=== PATIENT | female | born 1970 | race Caucasian/White ===

== ENCOUNTER 2020-08-19 19:02 | Emergency (ER) | payer MEDICAID, SELFPAY ==
[2020-08-19 19:06] VITALS: BP 132/79; PULSE 78; RESP 18; TEMP 36.6; O2SAT 97; BMI 26.2
[2020-08-19 19:10] VITALS: BP 132/79; PULSE 81; RESP 18; TEMP 36.6; O2SAT 97
--- NOTE | 2020-08-19 19:23 | EKG12_ITS ---
Test Reason : CP Blood Pressure : / mmHG Vent. Rate : 077 BPM Atrial Rate : 077 BPM P-R Int : 128 ms QRS Dur : 078 ms QT Int : 378 ms P-R-T Axes : 048 074 060 degrees QTc Int : 427 ms Normal sinus rhythm Normal ECG Confirmed by YOVANY EMERSON, ALFONSO ([id number]), film editor supervisor SAILAJA MCCLELLAN ([id number]) on 08/22/2020 2:59:24 PM Referred By: Confirmed By:LINDA PEDROZA MD
--- NOTE | 2020-08-19 19:45 | ED.VIS.GEN ---
History of Present Illness Chief Complaint: Chest Pain Informant: Patient Narrative: Patient is a 50-year-old previously healthy female who presents to the emergency department for intermittent chest pains. She feels like she has an electrical shock substernally that sometimes goes into the left side of her chest. It only last for a few seconds and then goes away. She does not know aggravating or relieving factors. She tried exerting herself which did not make her symptoms worse. The first time she felt this was 8 months ago. It can occur multiple times per day or not occur any times per day. She states it is completely random. During the episode she does feel short of breath. Besides her father passing away with a history of CHF no other significant cardiac or pulmonary family history. She denies any history of DVT/PE. No pain or swelling in her legs. She does have a former smoking history. She denies any cough, cold, congestion symptoms no fevers or chills. No abdominal pain. No radiation of the pain to her back. Past Medical History - Allergies and Home Meds Allergies/Adverse Reactions: Allergies Sulfa (Sulfonamide Antibiotics) Adverse Reaction (Verified 08/19/20 19:13) Other Primary Care Physician: Guy Akers DO [Primary Care Provider] - 1 Day Prior records reviewed: Yes Past Medical History: None Surgical History: - - Tubal ligation, tonsillectomy Smoking Status: Former smoker Review of Systems All systems negative except as indicated General: Denies: Chills, Fever, Sweats Eyes: Denies: Visual changes - bilaterally, Diplopia ENT: Denies: Rhinorrhea, Sore throat Cardiovascular: Reports: Chest pain, Palpitations Respiratory: Reports: Dyspnea. Denies: Cough, Dyspnea on exertion Gastrointestinal: Denies: Abdominal pain, Nausea, Vomiting, Diarrhea Genitourinary: Denies: Dysuria, Hematuria, Frequency Musculoskeletal: Denies: Back pain, Swelling, Extremity Pain Skin: Denies: Rash, Wounds Neurological: Denies: Headache, Weakness, Numbness Physical Exam Vital Signs/Narrative: Vital Signs Temp Pulse Resp BP Pulse Ox 08/19/20 19:10 97.8 F 81 18 132/79 H 97 08/19/20 19:06 97.8 F 78 18 132/79 H 97 Inital Vital Signs reviewed: Yes General: Well nourished, Well developed, No Acute Distress Head: Normocephalic, Atraumatic Eyes: Perrl, EOMI ENT: Moist mucous membranes, No rhinorrhea Neck: Supple, Nontender Cardiovascular: Regular rate, Regular rhythm, No murmurs Respiratory: No distress, CTA bilaterally, Chest nontender Abdomen: Soft, Nontender, Nondistended, Normal bowel sounds Back: Nontender, Normal Inspection Extremities: Nontender, No edema. Negative for: Calf Tenderness Skin: Normal color, No rash Neurological: Alert, Normal Strength, Normal Sensation Psychological: Normal affect, Normal Mood Diagnostic/Tx/Re-eval Chest X-Ray - ED: 1 View - Single view portable x-ray interpreted by myself. Clear lung shelton bilaterally. No pleural effusions. Normal mediastinum. Normal cardiac silhouette. Agree with radiologist interpretation. - EKG Initial EKG Interpretation: - - Rate of 77 bpm and normal sinus rhythm. Normal intervals. Normal axis. No significant ST elevations or depressions. No T wave abnormalities. - Medical Decision Making Patient presents to the ED for intermittent chest pain. This is not exertional. It does occur randomly. She is not actively having any symptoms right now. Upon arrival to the emergency department vital signs within normal limits. She is not hypoxic or tachycardic. Physical exam. EKG, chest x-ray and basic lab work being obtained. Patient's lab work-up did not reveal any significant acute abnormality. She is not anemic. Troponin within normal limits. No significant electrolyte disturbance. At this time I do not feel patient is suffering from ACS, PE, aortic catastrophe, esophageal rupture. She is stable appearing and has been asymptomatic. Her symptoms have been present over the past 8 months. She needs to follow-up with her PCP for further evaluation and work-up. At this time she is stable for discharge. Return precautions are reviewed including any persistent symptoms, exertional symptoms, shortness of breath. She understands and is agreeable this plan. All questions answered. ED Disposition - Plan for ED Patient: Disposition: Home or Assisted Living Diagnosis: Intermittent chest pain Instructions: ED Chest Pain, Noncardiac Referrals: Guy Akers DO [Primary Care Provider] - 1 Day
--- NOTE | 2020-08-19 19:52 | RAD_ITS ---
INDICATION: chest pain EXAMINATION/TECHNIQUE: X-RAY - XR Chest 1 View COMPARISON: None. FINDINGS: The lungs are clear. The cardiomediastinal silhouette is unremarkable. No pleural effusion or pneumothorax. No acute osseous abnormalities. RAD/Chest 1 View (Portable) IMPRESSION: No acute radiographic abnormalities. Electronically Signed: Escobar Armstrong MD at 20:02 EDT Tel , Service support ,
[2020-08-19 19:59] VITALS: O2SAT 99
[2020-08-19 20:03] VITALS: BP 116/75; PULSE 80; RESP 18
[2020-08-19 20:15] LABS: Absolute Lymphocyte Count 2.32 X10^3/uL (0.83-4.51); Absolute Neutrophil Count 3.2 X10^3/uL (2.0-7.7); Basophil# 0.05 X10^3/uL; Basophil% 0.8 % (0-1); Eosinophil# 0.14 X10^3/uL; Eosinophils% 2.3 % (0-5); Hematocrit 39.7 % (37-47); Hemoglobin 13.2 g/dL (12.0-15.0); Lymphocyte # 2.32 X10^3/ul (4.0); Lymphocyte % 37.9 % (19-41); Mean Corp Hgb Conc 33.2 g/dL (32-36); Mean Corpuscular Hgb 30.3 pg (27.0-32.0); Mean Corpuscular Volume 91.1 fL (81-99); Mean Platelet Vol. 10.4 fl (6.2-12.0); Monocyte# 0.43 X10^3/uL; NRBC Flagged by Analyzer 0 % (0-5); Neutrophil # 3.17 X10^3/uL (2.7-7.7); Neutrophil % 51.8 % (47-70); Platelet Count 352 K/mm3 (150-450); RBC Distribution Width CV 12.9 % (11.6-14.6); RBC Distribution Width SD 42.6 fl (35.1-43.9); Red Blood Count 4.36 M/mm3 (4.2-5.4); White Blood Count 6.1 K/mm3 (4.4-11.0)
[2020-08-19 20:27] LABS: Anion Gap 4 (5-15); BUN 16 mg/dL (7-18); BUN/Creat Ratio 14.8 RATIO (10-20); Calcium,Total 9.8 mg/dL (8.5-10.1); Chloride 105 mmol/L (98-107); Creatinine, Serum 1.08 mg/dL (0.55-1.02); EST Glomerular Filtration Rate 57 mL/min (>60); Est Glom Filt Rate - Afr Amer 69 mL/min (>60); Glucose 92 mg/dL (74-106); Magnesium 2.3 mg/dL (1.6-2.6); Potassium 3.7 mmol/L (3.5-5.1); Sodium Level 137 mmol/L (136-145)
== END 2020-08-19 21:21 | disposition home or self-care (01) ==
PROVIDERS: Emergency Provider Emergency Medicine; PCP Family Medicine
DX: R07.89 Other chest pain (principal); R06.02 Shortness of breath; Z87.891 Personal history of nicotine dependence
CPT/HCPCS: 71045; 80048; 83735; 84484; 85025; 93005; 99284; A4216